=== PATIENT | female | born 1985 | race Caucasian/White ===

== ENCOUNTER 2017-08-19 18:30 | Emergency (ER) | payer MEDICAID ==
[~2017-08-19] VITALS: Ht 149.9 cm; Wt 59.4 kg
[2017-08-19 18:35] VITALS: BP 125/76
== END 2017-08-19 19:37 | disposition home or self-care (01) ==
LOC: ED 19:10
DX: J20.9 Acute bronchitis, unspecified (principal); F17.210 Nicotine dependence, cigarettes, uncomplicated; Z59.0 Homelessness
CPT/HCPCS: 71046; 99284